=== PATIENT | female | born 1995 | race Caucasian/White ===

== ENCOUNTER 2020-02-24 16:17 | Outpatient (CLI) | payer MEDICAID ==
[2020-02-24 17:16] LABS: HIV ANTIBODY 1&2 RAPID NON-REACTIVE (Neg)
[2020-02-24 17:35] LABS: HCG SERUM QL POSITIVE
[2020-02-26 05:08] LABS: RPR Non Reactive (Non Reactive)
== END 2020-02-24 23:59 | disposition home or self-care (01) ==
LOC: EDBD 16:17 → LAB 16:17
PROVIDERS: ATTEND Nurse Practitioner
DX: Z30.49 Encounter for surveillance of other contraceptives (principal)
CPT/HCPCS: 36415; 84703; 86592; 86703